=== PATIENT | male | born 1995 ===

== ENCOUNTER 2018-08-21 04:33 | Emergency (ER) | payer SELFPAY ==
[2018-08-21 04:33] VITALS: BMI 31.7
[2018-08-21 04:43] VITALS: TEMP 99.3; O2SAT 95
--- NOTE | 2018-08-21 04:48 | C.PDOC ---
History Of Present Illness Patient is brought to the ED by EMS for public intoxication. Patient admits to drinking alcohol today. Patient denies SI/HI, hallucinations, injury, fall, trauma, other medical complaints at this time. Time Seen by Provider: 08/21/18 04:47 Chief Complaint (Nursing): Substance Abuse History Per: Patient, EMS History/Exam Limitations: intoxication Onset/Duration Of Symptoms: Hrs Current Symptoms Are (Timing): Still Present Suicide/Self Injury Attempted (Context): None Modifying Factor(s): Alcohol Associated Symptoms: denies: Depression, Suicidal Thoughts, Suicidal Plan Recent travel outside of the [place]: No Additional History Per: Patient, EMS Past Medical History Reviewed: Historical Data, Nursing Documentation, Vital Signs Vital Signs: Last Vital Signs Temp 99.3 F 08/21/18 04:38 Pulse 115 H 08/21/18 04:38 Resp 16 08/21/18 04:38 BP 126/75 08/21/18 04:38 Pulse Ox 95 08/21/18 04:38 - Medical History PMH: No Chronic Diseases Surgical History: No Surg Hx - [facility] TETANUS TOXOID ADMINIST (08/27/13) Family History: States: Unknown Family Hx - Social History Hx Tobacco Use: Yes Hx Alcohol Use: No Hx Substance Use: No - Immunization History Hx Tetanus Toxoid Vaccination: No Hx Influenza Vaccination: No Hx Pneumococcal Vaccination: No Review Of Systems Constitutional: Negative for: Fever, Chills Cardiovascular: Negative for: Chest Pain Respiratory: Negative for: Shortness of Breath Gastrointestinal: Negative for: Nausea, Vomiting, Abdominal Pain Psych: Negative for: Depression, Suicidal ideation Physical Exam - Physical Exam Appears: Non-toxic, No Acute Distress Skin: Warm, Dry Head: Normacephalic Eye(s): bilateral: Normal Inspection Neck: Supple Chest: Symmetrical Cardiovascular: Rhythm Regular Respiratory: No Rales, No Rhonchi, No Wheezing Gastrointestinal/Abdominal: Soft, No Tenderness, No Distention Extremity: Bilateral: Atraumatic, Normal Color And Temperature, Normal ROM Neurological/Psych: Oriented x3, Normal Speech, Normal Cognition Gait: Steady ED Course And Treatment O2 Sat by Pulse Oximetry: 95 (On RA) Pulse Ox Interpretation: Normal Reevaluation Time: 05:39 Reassessment Condition: Improved Disposition Counseled Patient/Family Regarding: Studies Performed, Diagnosis, Need For Followup - Disposition Referrals: [facility] [Outside] Disposition: HOME/ ROUTINE Disposition Time: 04:47 Condition: FAIR Instructions: Alcohol Abuse and Alcoholism (DC) Forms: [facility] (Armenian) - Clinical Impression Clinical Impression: Alcohol intoxication - Scribe Statement The provider has reviewed the documentation as recorded by the Scribe Sloan Burt All medical record entries made by the Scribe were at my direction and personally dictated by me. I have reviewed the chart and agree that the record accurately reflects my personal performance of the history, physical exam, medical decision making, and the department course for this patient. I have also personally directed, reviewed, and agree with the discharge instructions and disposition.
[2018-08-21 05:19] VITALS: BP 110/70; PULSE 84; RESP 14
== END 2018-08-21 05:18 | disposition home or self-care (01) ==
LOC: C.ER 04:33
DX: F10.129 Alcohol abuse with intoxication, unspecified (principal); Z72.0 Tobacco use